=== PATIENT | female | born 1965 | race African-American/Black ===

== ENCOUNTER 2016-06-26 15:01 | Emergency (ER) | payer OTHER ==
[~2016-06-26] VITALS: Ht 172.7 cm; Wt 95.7 kg
--- NOTE | 2016-06-26 15:33 | ED GENERAL ADULT ---
History of Present Illness General Chief Complaint: Hand or Wrist Injury Stated Complaint: RT WRIST/KNEE INJ,S/P FALL Source: patient Exam Limitations: no limitations Vital Signs & Intake/Output Vital Signs & Intake/Output Vital Signs Date Time Temp Pulse Resp B/P Pulse O2 O2 Flow FiO2 Ox Delivery Rate 06/26 1552 99 Room Air 06/26 1514 97.7 100 18 135/89 98 Room Air Allergies Coded Allergies: NO KNOWN ALLERGIES (06/26/16) Triage Note: PT TO TRIAGE WITH C/O R WRIST AND R KNEE PAIN S/P SLED AND FELL AT [facility]. PT DENIES HEADSTRIKE. ICE PACK PROVIDED. PT MEDICATED WITH MOTRIN 400MG PO IN TRIAGE. Triage Nurses Notes Reviewed? yes HPI: Patient is a 51-year-old female presenting to the emergency department with chief complaint of right knee pain, right breast pain after tripping and falling while at the store prior to arrival. No head injury. No loss of consciousness. Pain is achy throbbing worse with range of motion and palpation. Denies taking anything for pain prior to arrival. No numbness or tingling. Denies any other injuries. (MOJGAN BURT) Reconcile Medications No Known Home Medications (RICARDO CONDON,AP) Past History Travel History Traveled to [place] past 21 day No Medical History Any Pertinent Medical History? see below for history Respiratory: asthma Surgical History Surgical History: none Psychosocial History What is your primary language Croatian Tobacco Use: Never used Family History Hx Contributory? No (MOJGAN BURT) Review of Systems Review of Systems Constitutional: Reports: no symptoms. Comments Review of systems: See HPI, All other systems negative. Constitutional, no chills fever or weight loss HEENT: No visual changes no sore throat no congestion Cardiovascular: No chest pain ,palpitation Skin, no jaundice no rashes Respiratory: No dyspnea cough sputum or hemoptysis GI: No nausea no vomiting Muscle skeletal: no back pain, no neck pain, Neurologic: No numbness no confusion Psych: No stress anxiety Immunology: No splenectomy or history of AIDS (MOJGAN BURT) Physical Exam Physical Exam General Appearance: well developed/nourished, no apparent distress, alert, awake , comfortable Comments: Well-developed well-nourished person in no acute distress HEENT:Pupils equally round and reactive to light and accommodation. Nose is atraumatic. Neck: Normal inspection Back: Nontender Cardiovascular: Regular rate and rhythms no murmurs rubs or gallops, normal JVP Respiratory:No respiratory distress Extremity: No edema, no calf tenderness to palpation, normal and equal pulses. Tender to palpation over the right distal radius, positive snuffbox tenderness on the right. Limited range of motion of right wrist secondary to pain. Capillary refill is intact in upper x-rays bilaterally. Radial pulses are 2+ bilaterally. Able to move all digits on the right hand without difficulty or pain. No pain to palpation over the metacarpals on the right. Full range of motion of right elbow without difficulty or pain. Tender to palpation over the right anterior patella. Near full range of motion of right knee somewhat limited secondary to pain. No pain to palpation over the right calf, right ankle. No hip pain to palpation on the right. Neuro: Alert oriented x3, motor sensory normal Skin: No appreciable rash on exposed skin, skin is warm and dry. Psych: Mood and affect is normal, memory and judgment is normal. Core Measures ACS in differential dx? No CVA/TIA Diagnosis: No Severe Sepsis Present: No Septic Shock Present: No (KERI ART,MOJGAN) Progress Differential Diagnoses I considered the following diagnoses in my evaluation of the patient: Wrist fracture, wrist dislocation, wrist sprain, knee contusion, knee effusion, contusion Plan of Care: Orders Procedure Date/time Status Durable Medical Equipment 06/26 162 Active Diagnostic Imaging: Viewed by Me: Radiology Read. Discussed w/RAD: Radiology Read. Radiology Impression: PATIENT: JESUS QIU PRESENT AGE: 51 PATIENT ACCOUNT NO: [id number] : 65 LOCATION: [facility] ORDERING PHYSICIAN: MOJGAN ART SERVICE DATE: 06/26/16 EXAM TYPE: RAD - XRY-KNEE, RIGHT EXAMINATION: XR KNEE, RIGHT CLINICAL INFORMATION: 51-year-old woman post injury with pain. COMPARISON: None TECHNIQUE: Four views of the right knee. FINDINGS: There is no evidence of acute fracture. Alignment remains anatomic. Articular cartilage space is preserved. There may be a small suprapatellar joint effusion. IMPRESSION: No evidence of acute fracture or dislocation. Small suspected joint effusion. DICTATED BY: OLLIE MINAYA MD DATE/ TIME DICTATED:06/26/161609 CERTIFIED ADDICTION COUNSELOR:PARKER DATE/TIME TRANSCRIBED: 06/26/161609 CONFIDENTIAL, DO NOT COPY WITHOUT APPROPRIATE AUTHORIZATION. < Electronically signed in Other Vendor System> SIGNED BY: MARIMAR CONDON,OLLIE 10/05, WRIST: NO ACUTE FX/DISLOCATION Initial ED EKG: none (MOJGAN BURT) Departure Departure Time of Disposition: 1624 Disposition: HOME OR SELF CARE Condition: Stable Clinical Impression Primary Impression: Knee pain Qualifiers: Laterality: right Chronicity: acute Qualified Code: M25.561 - Pain in right knee Secondary Impressions: Wrist sprain Qualifiers: Encounter type: initial encounter Laterality: right Qualified Code: S63.501A - Unspecified sprain of right wrist, initial encounter Referrals: PATIENT HAS NO PRIMARY CARE DR (PCP/Family) MEREDITH CONDON,STEPHANIE Cowart Additional Instructions: Follow-up with orthopedic call to make an appointment. Wear wrist splint until follow-up. Take [id number] Tylenol or Motrin for pain. Elevate and ice the right knee and right wrist. Return for worsening symptoms or concerns. Departure Forms: Customer Survey General Discharge Information (MOJGAN BURT) Departure Prescriptions: Current Visit Scripts No Known Home Medications PA/WHIRLEY OPERATOR Co-Sign Statement Statement: ED Attending supervision documentation- [] I saw and evaluated the patient. I have also reviewed all the pertinent lab results and diagnostic results. I agree with the findings and the plan of care as documented in the PA's/WHIRLEY OPERATOR's documentation. [X] I have reviewed the ED Record and agree with the PA's/WHIRLEY OPERATOR's documentation. [] Additions or exceptions (if any) to the PAs/WHIRLEY OPERATOR's note and plan are summarized below: [] (RICARDO CONDON,AP) Procedures Splinting Location: RIGHT WRIST Manual Alignment Performed: No Pre-Made Type: velcro Splint: thumb spica Splint Applied By: splint applied by other (NURSING) Pre-Proc Neuro Vasc Exam: normal Post-Proc Neuro Vasc Exam: normal Progress: Patient tolerated procedure well. (MOJGAN BURT) Critical Care Note Critical Care Note Critical Care Time: non-applicable (MOJGAN BURT)
--- NOTE | 2016-06-26 16:13 | RADIOLOGY REPORT ---
EXAMINATION: XR FOREARM AND WRIST, RIGHT CLINICAL INFORMATION: 51-year-old woman with injury and pain. COMPARISON: None TECHNIQUE: 2 views of the right forearm and 4 views of the right wrist were obtained. FINDINGS: Forearm: There is no evidence of acute fracture. Alignment at the elbow appears anatomic. Wrist: There is no evidence of acute fracture. Alignment remains anatomic. Articular cartilage spaces are preserved. IMPRESSION: No evidence of acute fracture or dislocation involving the right forearm or wrist.
--- NOTE | 2016-06-26 16:15 | RADIOLOGY REPORT ---
EXAMINATION: XR KNEE, RIGHT CLINICAL INFORMATION: 51-year-old woman post injury with pain. COMPARISON: None TECHNIQUE: Four views of the right knee. FINDINGS: There is no evidence of acute fracture. Alignment remains anatomic. Articular cartilage space is preserved. There may be a small suprapatellar joint effusion. IMPRESSION: No evidence of acute fracture or dislocation. Small suspected joint effusion.
[2016-06-26 16:49] VITALS: BP 124/74
== END 2016-06-26 16:50 ==
LOC: ERH 15:01
DX: S63.501A Unspecified sprain of right wrist, initial encounter (principal); M25.561 Pain in right knee; W01.0XXA Fall on same level from slipping, tripping and stumbling without subsequent striking against object, initial encounter; Y92.512 Supermarket, store or market as the place of occurrence of the external cause
CPT/HCPCS: 73090-RT; 73110-RT; 73560-RT